=== PATIENT | male | born 2000 | race African-American/Black ===

== ENCOUNTER 2021-01-14 00:51 | Inpatient (IN) | payer OTHER, SELFPAY ==
[2021-01-14] MEDS ORDERED: Boostrix 0.5 ML (Tdap) VIAL ONE (01:00)
[2021-01-14] MEDS ORDERED: Fentanyl 100 MCG/2 ML VIAL ONE ×2 (01:00→14:34)
[2021-01-14 01:15] LABS: Hemoglobin 15.2 g/dL (13.5-17.5); Mean Corpuscular HGB CONC 33.3 g/dL (32.0-36.0); Mean Corpuscular Hemoglobin 30.6 pg (27.0-33.0); Mean Corpuscular Volume 91.8 fl (81.2-95.1); Mean Platelet Volume 10.4 fl (7.4-10.4); Platelet Count 230 10x3/uL (150-450); RBC Distribution Width 11.9 % (11.5-14.5); Red Blood Cell (RBC) Count 4.97 10x6/uL (4.32-5.72); White Blood Cell (WBC) Count 8.6 10x3/uL (3.5-10.5)
[2021-01-14 01:21] LABS: PTT 23.4 sec (22.0-33.0); Prothrombin Time 10.9 sec (9.5-12.1)
[2021-01-14 01:29] LABS: ALT (SGPT) 54 U/L (8-55); AST (SGOT) 95 U/L (5-34); Albumin 4.3 g/dL (3.5-5.0); Alkaline Phosphatase 70 U/L (40-110); Anion Gap 17 mmol/L (10-20); BUN (Urea Nitrogen) 6 mg/dL (8.9-20.6); Bilirubin, Total 0.9 mg/dL (0.2-1.2); Calc. Creatinine Clearance 0 mL/min (70-130); Carbon Dioxide 19 mmol/L (22-29); Chloride 110 mmol/L (98-107); Globulin 3.6 g/dL (2.4-3.5); Glucose 117 mg/dL (70-105); Lipase 43 U/L (8-78); Potassium 3.2 mmol/L (3.5-5.1); Protein, Total 7.9 g/dL (6.0-8.3); Sodium 143 mmol/L (136-145)
[2021-01-14 01:40] LABS: Alcohol 183 mg/dL (Less than 10)
[2021-01-14 01:42] LABS: Band 1 % (5-11); Eosinophils 1 % (0-10); Monocytes 2 % (0-10)
[2021-01-14 01:43] LABS: Lymphocytes 55 % (21-51); Reactive Lymphocytes 6 % (0-10)
[2021-01-14 01:44] LABS: Large Platelets SLIGHT; Neutrophil 35 % (42-75); Platelet Morphology Comment Appears Adequate
[2021-01-14 01:45] LABS: MDiff Complete? YES; RBC Morphology Normal
[2021-01-14] MEDS ORDERED: PROPOFOL 20 ML ONE ×2 (01:46→11:59)
[2021-01-14 03:45] LABS: SARS-CoV-2 NAA Rapid Test Not Detected (NotDetected)
[2021-01-14] MEDS ORDERED: Morphine 4 MG/ML VIAL SLOW IVP PRN ×2 (04:00→11:10)
[2021-01-14] MEDS ORDERED: Lorazepam 2 MG/ML VIAL SLOW IVP PRN (04:03)
[2021-01-14] MEDS ORDERED: HYDROcodone/Acetaminophen 5/325 mg Tablet PO PRN (04:05)
[2021-01-14 04:11] LABS: Lactic Acid 2.6 mmol/L (0.5-2.2)
[2021-01-14] MEDS ORDERED: Morphine 4 MG/ML VIAL ONE (04:25)
[2021-01-14] MEDS ORDERED: Famotidine/PF 20 mg/2ml Vial SLOW IVP SCH (05:00)
[2021-01-14 05:47] VITALS: BMI 18.8
[2021-01-14] MEDS ORDERED: Ketorolac Tromethamine 30 MG/ML VIAL IVP SCH (06:00)
[2021-01-14] MEDS ORDERED: Potassium Chloride 20 MEQ/100 ML PREMIX BAG ONE (06:23)
[2021-01-14] MEDS: Dextrose 5 %-0.45 % NaCl 1,000 ML IV SCH ×3 (06:43→20:42)
[2021-01-14] MEDS: Potassium Chloride 20 MEQ in Premix Bag 1 BAG IVPB SCH ×2 (06:52→09:35)
[2021-01-14] MEDS: Famotidine/PF 20 mg/2ml Vial SLOW IVP SCH ×2 (06:54→20:24)
[2021-01-14 08:35] LABS: Lactic Acid 2.7 mmol/L (0.5-2.2)
[2021-01-14 08:43] LABS: #Monocytes 0.8 10x3/uL (0.0-1.1); #Neutrophils 9.4 10x3/uL (1.5-8.4); %Basophils 0.2 % (0.0-2.0); %Monocytes 6.6 % (0.0-10.0); %Neutrophils 79.8 % (40.0-75.0); Hemoglobin 13.8 g/dL (13.5-17.5); Mean Corpuscular HGB CONC 32.8 g/dL (32.0-36.0); Mean Corpuscular Hemoglobin 30.2 pg (27.0-33.0); Mean Corpuscular Volume 92.1 fl (81.2-95.1); Mean Platelet Volume 10.5 fl (7.4-10.4); Platelet Count 195 10x3/uL (150-450); RBC Distribution Width 12.1 % (11.5-14.5); Red Blood Cell (RBC) Count 4.57 10x6/uL (4.32-5.72); White Blood Cell (WBC) Count 11.7 10x3/uL (3.5-10.5)
[2021-01-14 08:45] LABS: ALT (SGPT) 51 U/L (8-55); AST (SGOT) 78 U/L (5-34); Alkaline Phosphatase 61 U/L (40-110); Anion Gap 15 mmol/L (10-20); BUN (Urea Nitrogen) 6 mg/dL (8.9-20.6); Bilirubin, Total 0.7 mg/dL (0.2-1.2); CK (CPK) 797 U/L (30-200); Calc. Creatinine Clearance 109 mL/min (70-130); Calcium 8.5 mg/dL (7.8-10.44); Carbon Dioxide 21 mmol/L (22-29); Chloride 111 mmol/L (98-107); Globulin 2.7 g/dL (2.4-3.5); Glucose 104 mg/dL (70-105); Magnesium 1.6 mg/dL (1.6-2.6); Phosphorus 3.3 mg/dL (2.3-4.7); Potassium 3.7 mmol/L (3.5-5.1); Protein, Total 6.7 g/dL (6.0-8.3); Sodium 143 mmol/L (136-145)
[2021-01-14] MEDS ORDERED: Multivitamins, Adult 10 ML, Folic Acid 1 MG, Thiamine HCl 100 MG in Dextrose 5 %-0.45 %... IV SCH (09:00)
[2021-01-14] MEDS ORDERED: FLU VACC QS2021-22(6MOS UP)/PF 60 MCG/0.5 ML SYRINGE IM ONE (09:00)
[2021-01-14] MEDS ORDERED: Magnesium 2 GM/50 ML 2 GM in Premix Bag 1 BAG IVPB SCH (09:15)
[2021-01-14] MEDS ORDERED: TETANUS AND DIPHTHERIA TOX/PF 0.5 ML DISP.SYRIN IM SCH (11:15)
[2021-01-14] MEDS ORDERED: Communication Order-Pharmacy FS PRN (11:15)
[2021-01-14] MEDS ORDERED: Ondansetron PF 4 MG/2 ML Vial ONE (11:59)
[2021-01-14] MEDS ORDERED: Fentanyl 250 MCG/5 ML VIAL ONE (11:59)
[2021-01-14] MEDS ORDERED: Rocuronium Bromide 10 MG/ML (10ML VIAL) ONE (11:59)
[2021-01-14] MEDS ORDERED: Dexamethasone 4 mg/ml Vial ONE ×2 (11:59→12:15)
[2021-01-14] MEDS ORDERED: Lidocaine 1% PF 5 ML VIAL ONE (12:15)
[2021-01-14] MEDS ORDERED: Succinylcholine 200 MG/10 ml SYRINGE FS ONE (12:15)
[2021-01-14] MEDS ORDERED: Ketorolac Tromethamine 30 MG/ML VIAL ONE (12:16)
[2021-01-14] MEDS ORDERED: Glycopyrrolate 0.2 MG/ML 5 ML SYRINGE ONE (13:19)
[2021-01-14] MEDS ORDERED: Meperidine HCl/PF 25 MG/ML VIAL ONE (14:06)
[2021-01-14] MEDS: Ketorolac Tromethamine 30 MG/ML VIAL IVP SCH ×2 (15:18→18:06)
[2021-01-14] MEDS: ceFAZolin Sodium/D5W 2 GM in Premix Bag 1 BAG IVPB SCH ×2 (15:18→20:20)
[2021-01-14] MEDS ORDERED: EPINEPHrine 1 MG/ML AMP ONE (15:38)
[2021-01-14] MEDS ORDERED: Neosporin Ophth Soln 10 ml Bottle ONE (15:38)
[2021-01-14] MEDS ORDERED: Bupivacaine PF 0.5% 30 ML VIAL ONE (15:38)
[2021-01-14] MEDS: Aspirin 81 mg Enteric Coated Tablet PO SCH (20:35)
[2021-01-14] MEDS: HYDROcodone/Acetaminophen 10/325 mg Tablet PO PRN (20:36)
[2021-01-15] MEDS: Ketorolac Tromethamine 30 MG/ML VIAL IVP SCH ×4 (00:25→16:18)
[2021-01-15] MEDS: HYDROcodone/Acetaminophen 10/325 mg Tablet PO PRN ×5 (00:25→20:38)
[2021-01-15] MEDS ORDERED: Dextrose 5 %-0.45 % NaCl 1,000 ML ONE (04:07)
[2021-01-15] MEDS: ceFAZolin Sodium/D5W 2 GM in Premix Bag 1 BAG IVPB SCH ×3 (04:36→20:44)
[2021-01-15] MEDS: Dextrose 5 %-0.45 % NaCl 1,000 ML IV SCH ×3 (04:36→20:56)
[2021-01-15 07:01] LABS: #Monocytes 0.5 10x3/uL (0.0-1.1); #Neutrophils 4.6 10x3/uL (1.5-8.4); %Basophils 0.3 % (0.0-2.0); %Eosinophils 0.6 % (0.0-6.0); %Lymphocytes 25.1 % (18.0-47.0); %Monocytes 6.7 % (0.0-10.0); %Neutrophils 66.9 % (40.0-75.0); Hemoglobin 12.2 g/dL (13.5-17.5); Mean Corpuscular HGB CONC 32.4 g/dL (32.0-36.0); Mean Corpuscular Hemoglobin 30.3 pg (27.0-33.0); Mean Corpuscular Volume 93.5 fl (81.2-95.1); Platelet Count 145 10x3/uL (150-450); RBC Distribution Width 12.2 % (11.5-14.5); Red Blood Cell (RBC) Count 4.02 10x6/uL (4.32-5.72); White Blood Cell (WBC) Count 6.9 10x3/uL (3.5-10.5)
[2021-01-15 07:56] LABS: ALT (SGPT) 35 U/L (8-55); AST (SGOT) 45 U/L (5-34); Albumin 3.5 g/dL (3.5-5.0); Alkaline Phosphatase 57 U/L (40-110); Anion Gap 13 mmol/L (10-20); BUN (Urea Nitrogen) 5 mg/dL (8.9-20.6); Bilirubin, Total 1.4 mg/dL (0.2-1.2); CK (CPK) 1541 U/L (30-200); Calc. Creatinine Clearance 106 mL/min (70-130); Carbon Dioxide 20 mmol/L (22-29); Chloride 109 mmol/L (98-107); Globulin 2.6 g/dL (2.4-3.5); Glucose 98 mg/dL (70-105); Magnesium 2.3 mg/dL (1.6-2.6); Potassium 3.7 mmol/L (3.5-5.1); Protein, Total 6.1 g/dL (6.0-8.3); Sodium 138 mmol/L (136-145)
[2021-01-15] MEDS: Aspirin 81 mg Enteric Coated Tablet PO SCH ×2 (09:22→21:17)
[2021-01-15] MEDS: Multivitamins, Adult 10 ML, Folic Acid 1 MG, Thiamine HCl 100 MG in Dextrose 5 %-0.45 %... IV SCH (09:22)
[2021-01-15] MEDS: Famotidine/PF 20 mg/2ml Vial SLOW IVP SCH ×2 (09:22→20:37)
[2021-01-16] MEDS: HYDROcodone/Acetaminophen 10/325 mg Tablet PO PRN ×5 (00:24→16:00)
[2021-01-16] MEDS: ceFAZolin Sodium/D5W 2 GM in Premix Bag 1 BAG IVPB SCH ×2 (04:32→12:02)
[2021-01-16] MEDS: Dextrose 5 %-0.45 % NaCl 1,000 ML IV SCH ×2 (04:33→12:03)
[2021-01-16 05:32] LABS: #Eosinphils 0.4 10x3/uL (0.0-0.5); #Monocytes 0.4 10x3/uL (0.0-1.1); #Neutrophils 4.6 10x3/uL (1.5-8.4); %Basophils 0.3 % (0.0-2.0); %Eosinophils 5.3 % (0.0-6.0); %Lymphocytes 26.4 % (18.0-47.0); %Neutrophils 62.7 % (40.0-75.0); Hemoglobin 12.3 g/dL (13.5-17.5); Mean Corpuscular HGB CONC 32.2 g/dL (32.0-36.0); Mean Corpuscular Hemoglobin 30.6 pg (27.0-33.0); Mean Platelet Volume 10.4 fl (7.4-10.4); Platelet Count 142 10x3/uL (150-450); Red Blood Cell (RBC) Count 4.02 10x6/uL (4.32-5.72); White Blood Cell (WBC) Count 7.4 10x3/uL (3.5-10.5)
[2021-01-16 06:02] LABS: ALT (SGPT) 20 U/L (8-55); AST (SGOT) 38 U/L (5-34); Albumin 3.5 g/dL (3.5-5.0); Alkaline Phosphatase 59 U/L (40-110); Anion Gap 13 mmol/L (10-20); BUN (Urea Nitrogen) 7 mg/dL (8.9-20.6); Bilirubin, Total 0.9 mg/dL (0.2-1.2); Calc. Creatinine Clearance 97 mL/min (70-130); Carbon Dioxide 23 mmol/L (22-29); Chloride 107 mmol/L (98-107); Globulin 2.6 g/dL (2.4-3.5); Glucose 94 mg/dL (70-105); Potassium 3.5 mmol/L (3.5-5.1); Protein, Total 6.1 g/dL (6.0-8.3); Sodium 139 mmol/L (136-145)
[2021-01-16] MEDS: Aspirin 81 mg Enteric Coated Tablet PO SCH (08:02)
[2021-01-16] MEDS: Multivitamins, Adult 10 ML, Folic Acid 1 MG, Thiamine HCl 100 MG in Dextrose 5 %-0.45 %... IV SCH (08:03)
[2021-01-16] MEDS: Famotidine/PF 20 mg/2ml Vial SLOW IVP SCH (08:03)
[2021-01-16 16:49] VITALS: BP 120/65; TEMP 97.9
== END 2021-01-16 18:20 | disposition home or self-care (01) | DRG 493 ==
LOC: CSHERS 00:51 → CSHTELE 03:49
PROVIDERS: ADMIT Student in an Organized Health Care Education/Training Program; ATTEND Nurse Practitioner Family
PROC: 0QHH34Z Insertion of Internal Fixation Device into Left Tibia, Percutaneous Approach (ICD-10-PCS; principal; 2021-01-14)
DX: S82.252A Displaced comminuted fracture of shaft of left tibia, initial encounter for closed fracture (principal); E87.2 Acidosis; S27.329A Contusion of lung, unspecified, initial encounter; S82.452A Displaced comminuted fracture of shaft of left fibula, initial encounter for closed fracture; V43.52XA Car driver injured in collision with other type car in traffic accident, initial encounter; Z20.822 Contact with and (suspected) exposure to COVID-19; Y92.411 Interstate highway as the place of occurrence of the external cause; S11.91XA Laceration without foreign body of unspecified part of neck, initial encounter; S01.01XA Laceration without foreign body of scalp, initial encounter; F10.129 Alcohol abuse with intoxication, unspecified; E87.6 Hypokalemia; Y90.6 Blood alcohol level of 120-199 mg/100 ml; E83.42 Hypomagnesemia
CPT/HCPCS: 36415; 70450; 70486; 71045; 71260; 72125; 74177; 80053; 80307; 82550; 83605; 83690; 83735; 84100; 84484; 85025; 85610; 85730; 86900; 86901; 90715; 93005; 93010; C1713; G0390; J0171; J0690; J1100; J1885; J2175; J2270; J2405; J2704; J3010; J3411; J3475; J3480; J7042; S0020; S0028; U0002

== ENCOUNTER 2021-08-26 19:50 | Emergency (ER) | payer SELFPAY ==
[2021-08-26] MEDS ORDERED: Acetaminophen 500 MG TAB ONE (20:13)
[2021-08-26] MEDS ORDERED: Ibuprofen 200 MG TAB ONE (20:57)
== END 2021-08-26 21:16 | disposition home or self-care (01) ==
LOC: CSHERS 19:50
DX: B34.9 Viral infection, unspecified (principal); Z20.822 Contact with and (suspected) exposure to COVID-19
CPT/HCPCS: 71045; 87804; U0003; U0005

== ENCOUNTER 2021-09-01 14:41 | Emergency (ER) | payer SELFPAY | END 2021-09-01 15:38 | disposition left against medical advice (07) | LOC: CSHERS 14:41 | DX: Z53.21 Procedure and treatment not carried out due to patient leaving prior to being seen by health care provider (principal) ==